=== PATIENT | female | born 1990 | race Caucasian/White ===

== ENCOUNTER → 2023-09-18 07:54 | Outpatient (REF) | payer BC, SELFPAY | LOC: PNTC 07:54 | PROVIDERS: ATTENDING PHYSICIAN Obstetrics & Gynecology | DX: Z34.82 Encounter for supervision of other normal pregnancy, second trimester (principal) | CPT/HCPCS: 76805 ==

== ENCOUNTER → 2023-10-19 08:39 | Outpatient (REF) | payer BC, SELFPAY ==
--- NOTE | 2023-10-19 09:50 | PN.DIAED06 ---
Meal Plan - Gestational
- Breakfast
Gestational Diabetes Meal Plan Name: 1800 calories
Breakfast - Total Carbohydrate (grams): 30
Breakfast - Starch Carbohydrate: 1
Breakfast - Fruit Carbohydrate: 0
Breakfast - Milk Carbohydrate: 1
Breakfast - Nonstarchy Vegetables: Yes
Breakfast - Meat/Protein: 1
Breakfast - Fat: 2
- Morning Snack
Morning Snack - Total Carbohydrate (grams): 30
Morning Snack - Starch Carbohydrate: 1
Morning Snack - Fruit Carbohydrate: 0
Morning Snack - Milk Carbohydrate: 1
Morning Snack - Nonstarchy Vegetables: Yes
Morning Snack - Meat/Protein: 0.5
Morning Snack - Fat: 0
- Lunch
Lunch - Total Carbohydrate (grams): 45
Lunch - Starch Carbohydrate: 2
Lunch - Fruit Carbohydrate: 1
Lunch - Milk Carbohydrate: 0
Lunch - Nonstarchy Vegetables: Yes
Lunch - Meat/Protein: 2
Lunch - Fat: 1
- Afternoon Snack
Afternoon Snack - Total Carbohydrate (grams): 30
Afternoon Snack - Starch Carbohydrate: 1
Afternoon Snack - Fruit Carbohydrate: 1
Afternoon Snack - Milk Carbohydrate: 0
Afternoon Snack - Nonstarchy Vegetables: Yes
Afternoon Snack - Meat/Protein: 1
Afternoon Snack - Fat: 0
- Dinner
Dinner - Total Carbohydrate (grams): 45
Dinner - Starch Carbohydrate: 2
Dinner - Fruit Carbohydrate: 0
Dinner - Milk Carbohydrate: 1
Dinner - Nonstarchy Vegetables: Yes
Dinner - Meat/Protein: 2
Dinner - Fat: 2
- Evening Snack
Evening Snack - Total Carbohydrate (grams): 30
Evening Snack - Starch Carbohydrate: 1
Evening Snack - Fruit Carbohydrate: 0
Evening Snack - Milk Carbohydrate: 1
Evening Snack - Nonstarchy Vegetables: Yes
Evening Snack - Meat/Protein: 1
Evening Snack - Fat: 1
--- NOTE | 2023-10-19 10:27 | PN.DIAED02 ---
Referral
Referred For: Gestational Diabetes Self-Management Training
PHI Release Authorization Form Signed: Yes
Demographic
(1) Gestational diabetes
Status: Acute Code(s): O24.419 - Gestational diabetes mellitus in , unspecified control
Glycemic Control
- Oral Glucose Tolerance Test
Date: 10/12/23
Test: 100g
Fasting: Yes (65)
1-Hour (mg/dL): 192
2-Hour (mg/dL): 167
3-Hour (mg/dL): 129
Medical History of Diabetes
- Female Specific Medical History
Currently ?: Yes
Receiving care?: Yes
Estimated date of Confinement: 01/20/24
: 2
Para: 1
Care Plan
- Education Needs
Patient Education Needs: Preconception care//gestational diabetes management
Recommended Diabetes Training Program based on assessment: Gestational Diabetes Management
- Plan of Care
Plan of Care:
Katherine recently diagnosed w/GDM. EDC 01/20/24, male, 2 yr old daughter at home. Discussed glucose metabolism and importance to keep BS well controlled to avoid complications (macrosomia, hypoglycemia). She brought a One Touch Verio Flex from
home, instructions with good return demonstration. Initially, Katherine was fearful of sticking herself but felt relieved once she had performed the task. Result 104 mg/dl 2 hr pB of 1 slice Paul bread, avocado and eggs.Aware to test FBS and 2 hrs
post every meal as well as expected results: FBS <95 mg/dl, 2 hr post meal <120 mg/dl. Log sheet provided as well as phone number for Mely at [facility], she is to call every Sunday with results. If testing 1 hr post meal, expected
result <140 mg/dl. Discussed macronutrients and effect each plays on glucose metabolism. She is a vegetarian, and gets her protein from lentils,beans,fish, eggs, peanut butter. Provided with 1800 marv ADA GDM meal plan. Reduced lunch and dinner CHO
serving to 30 gm-45 gm instead of 45 gm. She had an eating disorder in high school and apprehensive about eating too much. She does realize this is more calories due to and that her body requires CHO. Handout on snack options provided,
Aware to consume protein and CHO with each meal and snack. She will need to add CHO to most of her snack choices and increase the amount at some of her meals. Reviewed current eating pattern and suggestions made. To avoid fruit/fruit juice until
noon. 'Choose Your Foods' booklet given for reference. She is feeling more relaxed and reassured after our meeting. She does use the [employer] 3x /week in the morning, aware to check BS prior to exercise or wait an hour after. Gestational booklet with
phone number given for follow up questions.
== END ==
LOC: DES 08:39
PROVIDERS: ATTENDING PHYSICIAN Obstetrics & Gynecology
DX: O24.419 Gestational diabetes mellitus in pregnancy, unspecified control (principal)
CPT/HCPCS: 99078

== ENCOUNTER → 2023-10-22 13:59 | Outpatient (REF) | payer BC, SELFPAY | LOC: PNTC 13:59 | PROVIDERS: ATTENDING PHYSICIAN Obstetrics & Gynecology | DX: O24.419 Gestational diabetes mellitus in pregnancy, unspecified control (principal) | CPT/HCPCS: 76816 ==

== ENCOUNTER 2023-12-31 03:56 | Inpatient (IN) | payer BC, SELFPAY ==
[2023-12-31 04:15] VITALS: BP 123/65
[2023-12-31 04:32] LABS: Glucose - Point of Care 92 mg/dl (70-99)
[2023-12-31 04:33] LABS: % Basophils 0.3 % (0-2); % Eosinophils 0.3 % (0-6); % Immature Granulocytes 0.5 % (0-0.5); % Neutrophils 76.9 % (42.2-75.2); Absolute Immature Granulocytes 0.1 10^3/uL (0-0.05); Absolute Lymphocytes 1.7 10^3/uL (1.2-3.4); Absolute Monocytes 0.5 10^3/uL (0.1-0.6); Absolute Neutrophils 7.5 10^3/uL (1.4-6.5); Hematocrit 34.3 % (37.0-47.0); Hemoglobin 12.5 g/dL (12.0-16.0); Mean Corp Hgb Conc. 36.4 g/dL (33.0-37.0); Mean Corpuscular Hgb 32.5 pg (27.0-31.0); Mean Corpuscular Volume 89.1 fL (81.0-99.0); Mean Platelet Volume 11.4 fL (7.4-10.4); Nucleated Red Blood Cells % 0 %; Platelet Count 161 10^3/uL (130-400); Red Blood Cell Count 3.85 10^6/uL (4.20-5.40); Red Cell Dist. Width 11.9 % (11.5-14.5); White Blood Cell Count 9.8 10^3/uL (4.8-10.8)
[2023-12-31] MEDS: SUBLIMAZE 100 MCG EPIDURAL (04:44)
[2023-12-31] MEDS: FENTANYL/BUPIVACAINE 100 EPIDURAL (04:44)
[2023-12-31] MEDS: LR 1000 IV ×2 (05:03→06:17)
[2023-12-31] MEDS: PITOCIN 30 UNITS/NSS 500 ML IV (07:27)
[2023-12-31] MEDS: XYLOCAINE-MPF 1% VIAL 30 ML INFIL (07:40)
[2023-12-31] MEDS: MOTRIN 600 MG PO ×2 (11:30→19:03)
[2024-01-01] MEDS: TYLENOL 650 MG PO (01:02)
[2024-01-01] MEDS: MOTRIN 600 MG PO ×2 (01:02→08:26)
[2024-01-01 04:55] LABS: Hematocrit 29.6 % (37.0-47.0)
[2024-01-01] MEDS: FEOSOL 325 MG PO (08:26)
[2024-01-01] MEDS: SENOKOT-S 1 TABLET PO (08:29)
[2024-01-01 16:24] LABS: Syphilis/T. pallidum Ab Reflex Negative (Negative)
== END 2024-01-01 16:32 | disposition home or self-care (01) | DRG 768 ==
LOC: LDRP 03:56
PROVIDERS: Obstetrics & Gynecology; ADMITTING PHYSICIAN Obstetrics & Gynecology
PROC: 10E0XZZ Delivery of Products of Conception, External Approach (ICD-10-PCS; 2023-12-31)
PROC: 10907ZC Drainage of Amniotic Fluid, Therapeutic from Products of Conception, Via Natural or Artificial Opening (ICD-10-PCS; 2023-12-31)
PROC: 0UQJXZZ Repair Clitoris, External Approach (ICD-10-PCS; 2023-12-31)
DX: O24.420 Gestational diabetes mellitus in childbirth, diet controlled (principal); Z37.0 Single live birth; Z3A.37 37 weeks gestation of pregnancy; O71.89 Other specified obstetric trauma
CPT/HCPCS: 82962; 85014; 85018; 85025; 86780; 86850; 86900; 86901